=== PATIENT | female | born 1930 | race Two or more races ===

== ENCOUNTER 2018-01-19 11:18 | Outpatient (CLI) | payer OTHER | END 2018-01-19 11:35 | disposition home or self-care (01) | LOC: NUCLEAR 11:18 | DX: I67.89 Other cerebrovascular disease (principal); I35.0 Nonrheumatic aortic (valve) stenosis; I13.10 Hypertensive heart and chronic kidney disease without heart failure, with stage 1 through stage 4 chronic kidney disease, or unspecified chronic kidney disease; I87.2 Venous insufficiency (chronic) (peripheral); I67.2 Cerebral atherosclerosis; I70.0 Atherosclerosis of aorta; E78.2 Mixed hyperlipidemia; E03.8 Other specified hypothyroidism; J30.9 Allergic rhinitis, unspecified; K59.00 Constipation, unspecified; K76.9 Liver disease, unspecified; R13.10 Dysphagia, unspecified; N18.3 Chronic kidney disease, stage 3 (moderate); N39.0 Urinary tract infection, site not specified; B19.20 Unspecified viral hepatitis C without hepatic coma; M15.0 Primary generalized (osteo)arthritis; M50.30 Other cervical disc degeneration, unspecified cervical region; M51.37 Other intervertebral disc degeneration, lumbosacral region; Z87.310 Personal history of (healed) osteoporosis fracture; M76.811 Anterior tibial syndrome, right leg; M25.562 Pain in left knee; M25.561 Pain in right knee; R05 Cough; L25.9 Unspecified contact dermatitis, unspecified cause; E55.9 Vitamin D deficiency, unspecified; E53.8 Deficiency of other specified B group vitamins; R51 Headache; M54.9 Dorsalgia, unspecified; Z68.28 Body mass index [BMI] 28.0-28.9, adult ==

== ENCOUNTER 2018-04-12 20:03 | Inpatient (IN) | payer OTHER ==
[~2018-04-12] VITALS: Ht 152.4 cm; Wt 68.0 kg
[2018-04-12] MEDS ORDERED: SYNTHROID100 MCG (20:48)
[2018-04-12] MEDS ORDERED: ISOSORBIDE DINI30 MG (20:49)
[2018-04-12] MEDS ORDERED: TOPROL XL25 MG (20:50)
--- NOTE | 2018-04-12 20:50 | NUR ---
PTE REFIERE QUE TIENE REFERIDO DE LA DRA NEWTON QUIEN LA ENVIA A ERICA DE EMERGENCIAS YA QUE TIENE UN ABCESO EN EL AREA VAGINAL LA CUAL ESTA DRENANDO, PTE REFIERE QUE TIENE MUCHO DOLOR EN EL AREA.
--- NOTE | 2018-04-13 01:05 | NUR ---
SE ORIENTA A PTE SOBRE PROCESO DE VENOPUNCION, RANDEE DE MUESTRAS, ADMINISTRACION DE MEDICAMENTOS. PTE REFIERE ENTENDER INF JONATHAN POR RN DE TURNO. SE MANTIENE PTE BAJO OBSERVACION.
--- NOTE | 2018-04-13 08:08 | NUR ---
PACIENTE ALERTA Y ORIENTADA POR JONATHAN ESFERAS EN COMPANIA DE FAMILIAR. SE OBSERVA H/L PATENTE ANDI DE EDEMA Y ENROJECIMIENTO. PENDIENTE CONSULTA CON DR. PALACIOS.
--- NOTE | 2018-04-13 12:02 | NUR ---
SE ASISTE A DR. PALACIOS EN EXAMEN VAGINAL
== END 2018-04-17 18:14 | disposition home or self-care (01) | DRG 759 ==
LOC: ER 20:03 → MEDJ 04-13 15:00
PROVIDERS: ADMIT Internal Medicine
DX: N76.4 Abscess of vulva (principal); B95.1 Streptococcus, group B, as the cause of diseases classified elsewhere

== ENCOUNTER 2018-09-28 13:47 | Emergency (ER) | payer OTHER ==
[~2018-09-28] VITALS: Ht 147.3 cm; Wt 57.6 kg
[~2018-09-28 13:47] MED LIST: ISOSORBIDE DINI30 MG; SYNTHROID100 MCG; TOPROL XL25 MG
== END 2018-09-28 19:19 | disposition home or self-care (01) ==
LOC: ER 13:47
DX: I67.89 Other cerebrovascular disease (principal); R51 Headache; R42 Dizziness and giddiness; R53.1 Weakness; I10 Essential (primary) hypertension